=== PATIENT | male | born 2000 | race Caucasian/White ===

== ENCOUNTER 2024-04-17 21:09 | Emergency (ER) | payer BC ==
[~2024-04-17] VITALS: Ht 177.8 cm; Wt 81.8 kg
[2024-04-17] MEDS ORDERED: FLONASE ALLERG9.9 ML NS (21:31)
[2024-04-17] MEDS ORDERED: ZYRTEC10 M3 PO (21:33)
[2024-04-17 22:08] LABS: BASO # 0.02 K/mm3 (0.02-0.10); EOS # 0.06 K/mm3 (0.04-0.40); EOS % 0.9 % (0.0-4.0); HEMATOCRIT 52.4 % (42.0-52.0); HEMOGLOBIN 18.3 g/dL (13.5-18.0); LYMPH# 2.46 K/mm3 (1.50-4.00); MEAN CELL VOLUME 91 fl (78-100); MEAN CORPUSCULAR HEMOGLOBIN 32 pg (27-31); MEAN CORPUSCULAR HGB CONC 35 g/dL (33-37); MEAN PLATELET VOLUME 10.3 fl (7.4-10.4); MONO # 0.45 K/mm3 (0.20-0.80); NEU # 3.37 K/mm3 (1.40-6.50); PLATELET COUNT 209 K/mm3 (130-400); RED BLOOD COUNT 5.77 M/mm3 (4.20-5.60); RED CELL DISTRIBUTION WIDTH 12.1 % (11.5-14.5); WHITE BLOOD COUNT 6.4 K/mm3 (4.8-10.8)
[2024-04-17 22:10] LABS: PH-URINE 6.5 (5.0 - 8.0); URINE APPEARANCE CLEAR (CLEAR); URINE BILIRUBIN NEGATIVE (NEGATIVE); URINE BLOOD NEGATIVE (NEGATIVE); URINE COLOR LIGHT YELLOW (YELLOW); URINE GLUCOSE NEGATIVE (NEGATIVE); URINE KETONE NEGATIVE (NEGATIVE); URINE LEUKOCYTE ESTERASE NEGATIVE (NEGATIVE); URINE NITRATE NEGATIVE (NEGATIVE); URINE PROTEIN(semi-quant) NEGATIVE (NEGATIVE); URINE WBC 0-1 /hpf (0-3)
[2024-04-17 22:14] LABS: ALBUMIN 5.1 g/dL (3.5-5.0)
[2024-04-17 22:15] LABS: CALCIUM 10.8 mg/dL (8.3-10.5)
[2024-04-17 22:17] LABS: TOTAL PROTEIN 8.3 g/dL (6.4-8.3)
[2024-04-17 22:18] LABS: TOTAL BILIRUBIN 0.7 mg/dL (0.2-1.2)
[2024-04-17] MEDS ORDERED: Iohexol 300 - 100 ML VIAL IV ONE (22:53)
[2024-04-17 23:55] VITALS: BP 133/76
--- NOTE | 2024-04-19 10:10 | NUR ---
Pt called wanting referral to GI provider and per Dr. Glover pt. is to follow up with primary. Pt notified and he states " I don't see Dr. Garcia anymore. Pt. advised to set up with primary in [facility] since this is where he lives.
== END 2024-04-17 23:55 | disposition home or self-care (01) ==
LOC: ED 21:09
PROVIDERS: Family Medicine
DX: R10.32 Left lower quadrant pain (principal)
CPT/HCPCS: Q9967